=== PATIENT | male | born 1980 | race Caucasian/White ===

== ENCOUNTER 2022-02-12 13:10 | Emergency (ER) | payer OTHER ==
[2022-02-12 13:31] VITALS: BP 176/111; PULSE 98; RESP 18; TEMP 98.4; BMI 26.6
[2022-02-12] MEDS ORDERED: LIDOCAINE 5% TOPICAL PATCH TP ONE (15:29)
[2022-02-12] MEDS ORDERED: IBUPROFEN 600 MG TABLET (FP) PO ONE ×2 (15:29→15:35)
[2022-02-12] MEDS ORDERED: LIDOCAINE 5% TOPICAL PATCH ONE (15:35)
[2022-02-12] MEDS ORDERED: LIDOCAINE PATCH REMOVAL MC SCH (22:00)
== END 2022-02-12 16:46 | disposition home or self-care (01) ==
LOC: JER 13:10
DX: M54.50 Low back pain, unspecified (principal); M79.605 Pain in left leg; V49.40XA Driver injured in collision with unspecified motor vehicles in traffic accident, initial encounter
CPT/HCPCS: 99283-25